=== PATIENT | female | born 1950 | race Caucasian/White ===

== ENCOUNTER → 2017-01-31 | Outpatient (CLI) | payer BC ==
--- NOTE | 2017-01-31 13:43 | PCVCIMAG ---
EXAM: BILATERAL CAROTID DUPLEX INDICATION: Carotid Occlusive Disease. FINDINGS: Doppler Measurements (centimeters per second): RIGHT: Peak CCA-73, Peak ECA-86, Diastolic ICA-38, Peak ICA-95, ICA/CCA Ratio-1.3. LEFT: Peak CCA-77, Peak ECA-76, Diastolic ICA-30, Peak ICA-73, ICA/CCA Ratio-0.9. RIGHT CAROTID: The carotid bulb has no significant plaque. The proximal internal carotid artery shows no significant stenosis. The common carotid artery shows no significant stenosis. The external carotid artery shows no significant stenosis. LEFT CAROTID: The carotid bulb has no significant plaque. The proximal internal carotid artery shows no significant stenosis. The common carotid artery shows no significant stenosis. The external carotid artery shows no significant stenosis. Antegrade flow in both vertebral arteries. IMPRESSION: No significant stenosis of the right internal carotid artery with no significant plaque. No significant stenosis of the left internal carotid artery with no significant plaque. LOC:[id number]
--- NOTE | 2017-01-31 14:43 | PCVCIMAG ---
EXAM: ULTRASOUND OF THE THYROID INDICATION: Thyroid nodules. FINDINGS: The right thyroid lobe measures 4.3 x 2.5 x 2.0 cm. The left thyroid lobe measures 3.5 x 1.8 x 1.6 cm. There is a dominant 1.0 x 1.2 x 1.6 cm solid nodule in the mid/lateral right thyroid lobe. There is a 0.4 x 0.5 x 0.6 cm predominantly cystic nodule in the thyroid isthmus just to the right of midline. There is a 0.4 x 0.6 x 0.7 cm hyperechoic solid nodule in the inferior left thyroid lobe anteriorly. There is a 0.7 x 0.7 x 0.9 cm predominantly cystic nodule in the inferior left thyroid lobe posteriorly. Diffuse heterogeneous echotexture throughout both thyroid lobes. IMPRESSION: Bilateral thyroid nodules as detailed above. The most dominant nodule is the 1.6 cm solid nodule in the mid right thyroid lobe laterally. Further evaluation by ENT is suggested. LOC:[id number]
--- NOTE | 2017-02-01 19:28 | PCVCIMAG ---
APPROVED REPORT Study performed: 01/31/2017 11:58:18 EXAM: Comprehensive 2D, Doppler, and color-flow Echocardiogram Patient Location: Echo lab Indications Hypertension/HDD Hyperlipidemia. Family History CAD. 2D Dimensions LVEF(%): 54.82 (>50%) IVSd: 10.18 (7-11mm)LVOT Diam: 17.36 (18-24mm) LVDd: 41.03 mm PWd: 10.47 (7-11mm)Ascending Ao: 27.92 (22-36mm) LVDs: 29.50 (25-40mm) Left Atrium: 33.95 (27-40mm) Aortic Root: 24.51 mm Puckett's LVEF: 54.82 % Volumes Left Atrial Volume (Systole) Single Plane 4CH: 25.21 mLSingle Plane 2CH: 43.31 mL LA ESV Index: 19.00 mL/m2 Aortic Valve AoV Peak Hay.: 1.58 m/s AO Peak Gr.: 10.04 mmHgLVOT Max P.64 mmHg LVOT Max V: 0.95 m/s MARVIN Vmax: 1.42 cm2 AI Vmax: 4.02 m/s AI Towner: 2.44 m/s2 AI PHT: 477.35 ms Mitral Valve E/A Ratio: 0.9 MV Decel. Time: 218.18 ms MV E Max Hay.: 0.83 m/s MV A Hay.: 0.88 m/s IVRT: 141.87 ms TDI E/Medial E': 0.10 E': 9.00Medial E' Hay.: 8.00 m/s Pulmonary Valve PV Peak Gr.: 2.27 mmHg Pulmonary Vein P Vein S: 0.55 m/sP Vein A: 0.33 m/s P Vein D: 0.42 m/sP Vein A Dur.: 76.1 msec P Vein S/D Ratio: 1.31 Left Ventricle The left ventricle is normal size. There is normal LV segmental wall motion. There is normal left ventricular wall thickness. Left ventricular systolic function is normal. The left ventricular ejection fraction is within the normal range. LVEF is 55-60%. The left ventricular diastolic function is normal. Right Ventricle The right ventricle is normal size. The right ventricular systolic function is normal. Atria The left atrium size is normal. The right atrium size is normal. Aortic Valve The aortic valve is normal in structure. No aortic regurgitation is present. There is no aortic valvular stenosis. Mitral Valve The mitral valve is normal in structure. There is no mitral valve regurgitation noted. No evidence of mitral valve stenosis. Tricuspid Valve The tricuspid valve is normal in structure. There is no tricuspid valve regurgitation noted. Pulmonic Valve The pulmonary valve is normal in structure. There is no pulmonic valvular regurgitation. Great Vessels The aortic root is normal in size. IVC is normal in size and collapses with >50% inspiration Pericardium There is no pericardial effusion. <Conclusion> The left ventricle is normal size. There is normal left ventricular wall thickness. Left ventricular systolic function is normal. The left ventricular ejection fraction is within the normal range. LVEF is 55-60%. The right ventricle is normal size. The left atrium size is normal. The aortic valve is normal in structure. There is no mitral valve regurgitation noted. There is no pericardial effusion. There is no pericardial effusion. There is no pericardial effusion. There is no pericardial effusion.
== END | disposition home or self-care (01) ==
LOC: PCVCIMAG 09:35
PROVIDERS: ATTEND Internal Medicine Cardiovascular Disease
DX: E04.2 Nontoxic multinodular goiter (principal); G45.9 Transient cerebral ischemic attack, unspecified; I10 Essential (primary) hypertension; E78.5 Hyperlipidemia, unspecified; E78.00 Pure hypercholesterolemia, unspecified; Z82.49 Family history of ischemic heart disease and other diseases of the circulatory system
CPT/HCPCS: 76536; 93306; 93880

== ENCOUNTER → 2017-11-19 | Outpatient (CLI) | payer MEDICARE, BC | END | disposition home or self-care (01) | LOC: PCVCCLINIC 13:03 | DX: I10 Essential (primary) hypertension (principal); E04.1 Nontoxic single thyroid nodule; E78.00 Pure hypercholesterolemia, unspecified; R94.31 Abnormal electrocardiogram [ECG] [EKG]; Z82.49 Family history of ischemic heart disease and other diseases of the circulatory system; Z79.899 Other long term (current) drug therapy | CPT/HCPCS: 80061; 93005; G0463 ==

== ENCOUNTER → 2017-12-27 | Outpatient (CLI) | payer MEDICARE, BC | END | disposition home or self-care (01) | LOC: PCVCIMAG 09:55 | DX: E04.1 Nontoxic single thyroid nodule (principal); E78.5 Hyperlipidemia, unspecified; I10 Essential (primary) hypertension; Z82.49 Family history of ischemic heart disease and other diseases of the circulatory system | CPT/HCPCS: 76536; 80061; 93325; 93351 ==